=== PATIENT | male | born 1970 | race Caucasian/White ===

== ENCOUNTER 2016-11-08 01:43 | Emergency (ER) | payer BC ==
[~2016-11-08] VITALS: Ht 190.5 cm; Wt 123.7 kg
[~2016-11-08 01:43] MED LIST: CITALOPRAM HBR 40 MG PO; FISH OIL 1,0001 EAC7 PO; MULTIVITAMIN1 EAC1 PO; PROAIR HFA8.5 GM IH; SIMVASTATIN 40 MG TA PO; SINGULAIR10 MG; XYZAL5 MG PO; ZYRTEC10 M3 PO
[2016-11-08] MEDS ORDERED: CLEOCIN300 MG PO (02:04)
[2016-11-08] MEDS ORDERED: ULTRAM50 MG PO (02:05)
[2016-11-08 02:30] VITALS: BP 187/78
== END 2016-11-08 02:31 | disposition home or self-care (01) ==
LOC: EME 01:43 → EXP 01:43
DX: K08.89 Other specified disorders of teeth and supporting structures (principal); Z88.0 Allergy status to penicillin
CPT/HCPCS: 99281; 99283